=== PATIENT | female | born 1985 | race Caucasian/White ===

== ENCOUNTER 2018-04-05 13:38 | Emergency (ER) | payer OTHER ==
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
[2018-04-05] MEDS ORDERED: HYDROCODONE/APAP 5/325 TAB PO ONE (16:47)
[2018-04-05 18:20] VITALS: BP 118/80
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
== END 2018-04-05 18:19 | disposition home or self-care (01) ==
DX: S52.125A Nondisplaced fracture of head of left radius, initial encounter for closed fracture (principal); S82.142A Displaced bicondylar fracture of left tibia, initial encounter for closed fracture; V03.10XA Pedestrian on foot injured in collision with car, pick-up truck or van in traffic accident, initial encounter; Y93.02 Activity, running; Y92.410 Unspecified street and highway as the place of occurrence of the external cause